=== PATIENT | female | born 1990 | race Caucasian/White ===

== ENCOUNTER 2023-07-17 20:16 | Emergency (ER) | payer MEDICAID, SELFPAY ==
[2023-07-17] VITALS (10 sets, daily range): BP systolic 105–129; BP diastolic 62–98; PULSE 70–103; RESP 13–29; TEMP 36.6; O2SAT 98–100
--- NOTE | ~2023-07-17 | US_ITS ---
EXAMINATION: US pelvic complete DATE: 07/17/2023 22:55 INDICATION: Left ovarian cyst. Left pelvic pain. TECHNIQUE: Multiple transabdominal sonographic images of the pelvis were obtained. COMPARISON: CT abdomen and pelvis 07/17/23 FINDINGS: The uterus measures 10.2 x 4.3 x 5.4 cm. There is no free fluid in the pelvis. The endometrial comple x measures 7 mm in thickness. The right ovary measures 2.7 x 1.7 x 2.3 cm. The left ovary measures 5. 1 x 3.6 x 5.1 cm. There is a 3.8 cm cyst with a few thin septations in left ovary, likely benign. The re is normal vascular flow in the ovaries. IMPRESSION: 1. 3.8 cm cyst in left ovary, likely benign. Reviewed, dictated and finalized at location E. [employer] TEACHER
--- NOTE | ~2023-07-17 | CT_ITS ---
EXAMINATION: CT abdomen pelvis w con DATE: 07/17/2023 21:28 INDICATION: Left lower quadrant abdominal pain. TECHNIQUE: Computed tomography (CT) of the abdomen and pelvis was performed with 100 mL Omnipaque 350 intravenous contrast. Automated exposure control and iterative reconstruction technique were employe d. The dose-length product was 230.61 mGy-cm. COMPARISON: CT abdomen and pelvis 08/02/2007 FINDINGS: The visualized portions of the lung bases are clear without pneumonia or pleural effusion. The heart size is normal. No pericardial effusion. The liver, gallbladder, spleen, pancreas, adrenal glands, and kidneys are normal. There is a 3.9 cm cyst in left ovary. There are no dilated loops of b owel. The appendix is normal. There are no pathologically enlarged lymph nodes. There is no free intr aperitoneal fluid. There is mild lumbar spondylosis. IMPRESSION: 1. 3.9 cm cyst in left ovary, likely a follicular cyst. Reviewed, dictated and finalized at location E. [employer]
--- NOTE | 2023-07-17 20:37 | ED.ABDPAIN ---
HPI - Abdominal Pain General Chief Complaint: Abdominal Pain Stated Complaint: Left lower abd pain Time Seen by Provider: 07/17/23 20:23 Source: patient Mode of arrival: ambulatory Limitations: no limitations History of Present Illness HPI narrative: This is a 33-year-old female that presents to the emergency department for left lower quadrant abdominal pain/pelvic pain. Ongoing since yesterday. Reports recently finishing her menstrual cycle. She has been having worsening pain since. Not relieved with Tylenol. Denies fevers, vomiting, dysuria, or hematuria. Related Data Allergies Allergy/AdvReac Type Severity Reaction Status Date / Time erythromycin base Allergy Mild Other Verified 07/17/23 20:45 Review of Systems Review of Systems: CONSTITUTIONAL: Denies fever GASTROINTESTINAL: Reports abdominal pain. Denies nausea, vomiting, or diarrhea. GENITOURINARY: Denies dysuria or hematuria. All systems reviewed & are unremarkable except as noted in HPI and below PMFSH Past Medical History Medical History (Updated 07/18/23 @ 00:15 by Shwetha Rowley PA-C) No active medical problems Social History Social History (Updated 07/17/23 @ 20:38 by Shwetha Rowley PA-C) Substance use: never Exam Narrative: GENERAL: Well-appearing, well-nourished, and in no acute distress. HEAD: Normocephalic, atraumatic. EYES: EOMI. CHEST: Clear to auscultation. No respiratory distress. No wheezes rales or rhonchi HEART: Regular rate and rhythm. No murmur heard. Normal peripheral pulses. ABDOMEN: Soft, nondistended, normal active bowel sounds. Tender to palpation in the left lower quadrant, without guarding EXTREMITIES: Normal range of motion. No edema. SKIN: Warm, dry, no rash. NEURO: No focal deficits. Alert and oriented x3. PSYCH: Normal mood and affect Course Course Emergency Course: Patient updated on workup and agrees with plan of care Vital Signs Vital signs: Vital Signs Temperature 97.8 F 07/17/23 20:18 Pulse Rate 94 07/17/23 20:18 Respiratory Rate 19 07/17/23 20:18 Blood Pressure 122/98 H 07/17/23 20:18 Pulse Oximetry 100 07/17/23 20:18 Oxygen Delivery Room Air 07/17/23 20:18 Temperature 97.8 F 07/17/23 20:18 Pulse Rate 86 07/18/23 00:02 Respiratory Rate 26 H 07/18/23 00:02 Blood Pressure 105/78 07/17/23 23:46 Pulse Oximetry 98 07/17/23 23:46 Oxygen Delivery Room Air 07/17/23 20:18 MDM - Abdominal Pain MDM Narrative Medical decision making narrative: Patient presents to the emergency department for left lower quadrant abdominal/pelvic pain. She is afebrile and nontoxic appearing. Her vitals are stable. CBC without leukocytosis. Metabolic panel without concerning findings. Urine without evidence of infection. This will be sent for culture. Patient started on IV antibiotics. CT abdomen and pelvis shows a 3.9 cm left ovarian cyst. Pelvic ultrasound obtained for further evaluation. Shows a benign-appearing cyst with normal vascular flow to the ovaries. Patient updated on workup and agrees with plan of care. Will be continued on oral antibiotics and was instructed to have follow-up with gynecology. She was given warnings to return to the ER Differential Diagnosis Differential diagnosis: Likely calculus of kidney, diverticulitis and other (UTI) Lab Data Attestation: I reviewed the patient's lab results. 07/17/23 20:36 07/17/23 20:36 Labs: Lab Results 07/17/23 Range/Units 20:36 WBC 6.0 (4.5-10.0) K/mm3 RBC 4.81 (4.2-5.4) M/mm3 Hgb 14.7 (12.0-15.0) g/dL Hct 43.6 (37.0-47.0) % MCV 90.6 (80-100) fl MCH 30.6 (26-34) pg MCHC 33.7 (32-36) g/dl RDW 13.1 (11.5-14.5) % Plt Count 234 (150-375) k/mm3 MPV 9.9 (7.4-10.4) fl Immature Gran % (Auto) 0.2 (0-0.5) % Neut % (Auto) 58.4 (45.5-73.1) % Lymph % (Auto) 33.4 (18.3-44.2) % [place] % (Auto) 6.7 (2.6-8.5) % Eos % (Auto) 0.8 (0-4.4) % Ba
[2023-07-17] MEDS: SODIUM CHLORIDE 0.9% IV 1,000 ML 999 ML IV CONT (20:43)
[2023-07-17 20:44] LABS: Basophils Percent Auto 0.5 % (0.2-1.2); Eosinophils Absolute Auto 0.1 K/mm3 (0-0.3); Eosinophils Percent Auto 0.8 % (0-4.4); Hematocrit 43.6 % (37.0-47.0); Hemoglobin 14.7 g/dL (12.0-15.0); Immature Granulocyte Absolute 0.01 K/mm3 (0.00-0.031); Immature Granulocyte Percent A 0.2 % (0-0.5); Lymphocytes Absolute Auto 1.99 K/mm3 (0.9-3.2); Lymphocytes Percent Auto 33.4 % (18.3-44.2); Mean Corpuscular HGB Conc 33.7 g/dl (32-36); Mean Corpuscular Hemoglobin 30.6 pg (26-34); Mean Corpuscular Volume 90.6 fl (80-100); Mean Platelet Volume 9.9 fl (7.4-10.4); Monocytes Absolute Auto 0.4 K/mm3 (0.1-0.6); Monocytes Percent Auto 6.7 % (2.6-8.5); Neutrophils Absolute Auto 3.5 K/mm3 (1.3-6.7); Neutrophils Percent Auto 58.4 % (45.5-73.1); Platelet Count Result 234 k/mm3 (150-375); Red Blood Count 4.81 M/mm3 (4.2-5.4); Red Cell Distribution Width 13.1 % (11.5-14.5)
[2023-07-17] MEDS: ONDANSETRON INJ 4 MG/2 ML VIAL IV PUSH (20:44)
[2023-07-17] MEDS: MORPHINE SULFATE (*CRX) 4 MG/ML INJ IV PUSH (20:44)
[2023-07-17 20:50] LABS: Appearance Urine Clear (Clear); Bacteria Urine 4+ /hpf; Bilirubin Urine Negative (Negative); Blood Urine Negative (Negative); Color Urine Yellow (Yellow); Glucose Urine UA Negative (Negative); Ketones Urine Negative (Negative); Leukocyte Esterase Ur Negative LEU/UL (Negative); Nitrate Urine Positive (Negative); Non Pathogenic Casts 0-2; Protein Urine Negative (Negative); RBC Urine 0-2 /hpf (0-2); Specific Grav Ur 1.005 (1.001-1.035); Squamous Epithelial Cell Urine None seen /hpf (Few); Urobilinogen Urine 0.2 mg/dL (<2.0); WBC Urine 0-5 /hpf; pH Urine 7.5 (5.0-9.0)
[2023-07-17 20:54] LABS: Alanine Aminotransferase 17 U/L (6-35); Albumin Level 4.8 g/dL (3.5-5.1); Alkaline Phosphatase 62 U/L (38-126); Anion Gap 9 mmol/L (8-16); Aspartate Amino Transferase 21 U/L (14-36); Bilirubin,Total 0.6 mg/dL (0.2-1.3); Blood Urea Nitrogen 8 mg/dL (7-17); Calcium 9.5 mg/dL (8.4-10.2); Carbon Dioxide 24 mmol/L (22-30); Chloride 107 mmol/L (98-107); Estimated CRCL calculation 99 ml/min; Estimated Glomerular Filt Rate > 60; Glucose 98 mg/dL (65-110); Lipase 41 U/L (23-300); Potassium 3.6 mmol/L (3.4-5.0); Sodium 140 mmol/L (137-145)
[2023-07-17 20:56] LABS: Add Urine Microscopic? YES
[2023-07-17] MEDS: KETOROLAC 15 MG/ML VIAL (*BKC) IV PUSH (23:28)
[2023-07-18 00:02] VITALS: PULSE 86; RESP 26
== END 2023-07-18 00:24 | disposition home or self-care (01) ==
PROVIDERS: Emergency Provider Physician Assistant
DX: N30.00 Acute cystitis without hematuria (principal); N83.202 Unspecified ovarian cyst, left side
CPT/HCPCS: 36415; 74177; 76856; 80053; 81001; 81025; 83690; 85025; 96361; 96365; 96375; 99284; J0696; J1885; J2270; J2405; J7030; Q9967